=== PATIENT | male | born 1975 | race Hispanic/Latino ===

== ENCOUNTER 2017-10-05 14:03 | Emergency (ER) | payer BC ==
[~2017-10-05] VITALS: Ht 175.3 cm; Wt 99.8 kg
[2017-10-05 14:28] LABS: BASOPHILS % 0.2 % (0.0-1.0); EOSINOPHILS % 0.1 % (0.0-6.0); HEMATOCRIT 42.9 % (38.2-49.6); LYMPHOCYTES # (AUTO) 1.6 (1.0-3.2); LYMPHOCYTES % 11.6 % (18.0-39.1); MEAN CORPUSCULAR HEMOGLOBIN 29.8 pg (28-32); MEAN CORPUSCULAR VOLUME 85.1 fL (81-99); MONOCYTES # (AUTO) 0.8 (0.2-0.8); MONOCYTES % 5.6 % (4.4-11.3); NEUTROPHILS # (AUTO) 11.4 (2.1-6.9); NEUTROPHILS % 81.6 % (38.7-80.0); PLATELET COUNT 276 x10e3/uL (140-360); RED BLOOD COUNT 5.04 x10e6/uL (4.3-5.7)
[2017-10-05] MEDS ORDERED: NIFEDIPINE 10 MG CAP PO ONE (14:30)
[2017-10-05 14:42] LABS: ANION GAP 12.6 mmol/L (8-16); BLOOD UREA NITROGEN 10 mg/dL (7-26); BUN/CREATININE RATIO 11 (6-25); CALCIUM 9.6 mg/dL (8.4-10.2); CARBON DIOXIDE 26 mmol/L (22-29); CHLORIDE 103 mmol/L (98-107); CREATININE, SERUM 0.94 mg/dL (0.72-1.25); EST GLOMERULAR FILTRATION RATE > 60 ML/MIN (60-); GLUCOSE 141 mg/dL (74-118); POTASSIUM 3.6 mmol/L (3.5-5.1); SODIUM 138 mmol/L (136-145)
--- NOTE | 2017-10-05 15:27 | Diagnostic Imaging Report ---
PROCEDURE: Frontal and lateral views of the chest. COMPARISON: None. INDICATIONS: NECK PAIN FINDINGS: Lines/tubes: None. Lungs: The lungs are well inflated and clear. There is no evidence of pneumonia or pulmonary edema. Pleura: There is no pleural effusion or pneumothorax. Heart and mediastinum: The heart and the mediastinum are normal. Bones: No acute bony abnormality. IMPRESSION: 1. No acute cardiopulmonary abnormalities. Valdez Nicholas M.D. Dictated by: Valdez Nicholas M.D. on 10/05/2017 at 15:30 Electronically approved by: Valdez Nicholas M.D. on 10/05/2017 at 15:30
--- NOTE | 2017-10-05 15:40 | Diagnostic Imaging Report ---
PROCEDURE:C-SPINE COMPLETE COMPARISON:None. INDICATIONS:NECK PAIN FINDINGS: Cervical spine is visualized on the lateral view from the skull base to C7-T1. Loss of the normal cervical lordosis, which may be due to muscle spasm or positioning. No acute, displaced fracture. No significant spondylolisthesis. Intervertebral disc spaces and vertebral body heights are preserved. Bilateral oblique views show patent neural foramina. Subtle fractures, ligamentous and soft tissue injury cannot be excluded on the basis of this examination. Incidental note is made of an impacted left lower molar. CONCLUSION: Loss of the normal cervical lordosis, which may be due to muscle spasm or positioning. Otherwise, essentially unremarkable cervical films. Valdez Nicholas M.D. Dictated by: Valdez Nicholas M.D. on 10/05/2017 at 15:43 Electronically approved by: Valdez Nicholas M.D. on 10/05/2017 at 15:43
[2017-10-05] MEDS ORDERED: LISINOPRIL 10 MG TAB PO ONE (15:45)
== END 2017-10-05 16:46 | disposition home or self-care (01) ==
LOC: ER 14:03
DX: S16.1XXA Strain of muscle, fascia and tendon at neck level, initial encounter (principal); I10 Essential (primary) hypertension; F17.210 Nicotine dependence, cigarettes, uncomplicated; X58.XXXA Exposure to other specified factors, initial encounter
CPT/HCPCS: 36415; 71046; 72050; 80048; 85025; 93005; 99284

== ENCOUNTER 2017-11-02 12:51 | Emergency (ER) | payer BC ==
[~2017-11-02] VITALS: Ht 175.3 cm; Wt 99.8 kg
[2017-11-02] MEDS ORDERED: KETOROLAC TROMETHAMINE 60 MG/2 ML VIAL IM ONE (14:15)
[2017-11-02] MEDS ORDERED: CLONIDINE HCL 0.1 MG TAB PO ONE (14:15)
--- NOTE | 2017-11-02 15:20 | Diagnostic Imaging Report ---
Exam: Cervical spine CT without IV contrast History: Neck pain. Comparison studies: Cervical spine x-ray 10/05/2017 Technique: Axial images were obtained through the cervical region. Coronal and sagittal images reconstructed from the axial data. Intravenous contrast: None Findings: Atlantoaxial articulation: Intact Alignment: Strain cervical curvature may be positional. No subluxations. Cervicomedullary junction: No abnormalities. Patent foramen magnum. Soft tissues: There is a 10 mm nodules/likely lymph node in the right suboccipital soft tissues in the area of concern as noted by skin marker which was placed prior to the exam. No other gross soft tissue abnormalities. Vertebrae: No fractures, neoplasm or infection. Degenerative changes: Mildly degenerated disks from C4 to C7 with small disc osteophyte complexes which indent the thecal sac but do not result in significant canal stenosis. Patent foramina. IMPRESSION: 1. Nonspecific 10 mm right suboccipital nodule, likely lymph node, in the area of concern. 2. Mild degenerative changes without significant canal or foraminal stenosis. Cannot adequately evaluate ligament, spinal cord or vascular abnormalities on the basis of this exam. Signed by: Dr. Leonel Holder M.D. on 11/02/2017 3:17 PM
== END 2017-11-02 18:35 | disposition home or self-care (01) ==
LOC: ER 12:51
DX: M54.2 Cervicalgia (principal); S16.1XXA Strain of muscle, fascia and tendon at neck level, initial encounter; I10 Essential (primary) hypertension
CPT/HCPCS: 72125; 99284; J1885

== ENCOUNTER → 2017-11-08 | Outpatient (CLI) | payer BC ==
[~2017-11-08] MED LIST: GADOBENATE DIMEGLUMINE 1 ML IV ONE; SODIUM CHLORIDE 0.9% 50ML 50 ML ONE
[2017-11-08 09:21] LABS: BLOOD UREA NITROGEN 9 mg/dL (7-26); BUN/CREATININE RATIO 9 (6-25); CREATININE, SERUM 0.95 mg/dL (0.72-1.25); EST GLOMERULAR FILTRATION RATE > 60 ML/MIN (60-)
--- NOTE | 2017-11-08 09:44 | Diagnostic Imaging Report ---
PROCEDURE: X-RAY CHEST, TWO VIEWS COMPARISON: Patients [facility], DX, CHEST 2 VIEWS, 10/05/2017, 14:16. INDICATIONS: RIGHT SIDE NECK LESION, SMOKER FINDINGS: LUNGS: No consolidations or edema. PLEURA: No effusions or pneumothorax. HEART \T\ MEDIASTINUM: The heart is within normal size-limits. BONES \T\ SOFT TISSUES: No acute findings. CONCLUSION: No acute thoracic abnormality. Jeremy Negron D.O. Dictated by: Jeremy Negron D.O. on 11/08/2017 at 9:48 Electronically approved by: Jeremy Negron D.O. on 11/08/2017 at 9:48
--- NOTE | 2017-11-08 12:21 | Diagnostic Imaging Report ---
PROCEDURE:C-SPINE COMPLETE COMPARISON:10/05/17 INDICATIONS:RIGHT SIDED NECK LESION FINDINGS: The lateral view is visualized from the skull base to C6. Limited for C7-T1 on lateral view. The vertebral bodies are well-aligned. Again seen mild loss of cervical spine lordosis. There are no fractures, lytic or blastic lesions. The disc-space heights are well-maintained. The C1/C2-odontoid interval is normal. The pre-vertebral soft tissues are normal. CONCLUSION: Unremarkable cervical spine radiograph. Dictated by: Rudy Page M.D. on 11/08/2017 at 12:25 Electronically approved by: Rudy Page M.D. on 11/08/2017 at 12:25
--- NOTE | 2017-11-08 21:17 | Diagnostic Imaging Report ---
Examination: Neck MRI without and with Contrast History: Right-sided neck lesion. Comparison studies: CT cervical spine performed November 02, 2017. Technique: Pre-contrast: Axial T1 Flair, T2 fat sat, proton density, coronal T2 Post contrast: Axial and Coronal T1 fat sat Intravenous contrast: 20 cc of MultiHance Findings: Soft tissues: No abnormalities. Aerodigestive tract: No abnormality. Lymph nodes: A homogeneous 7.5 mm node is seen deep to the marker placed in the right posterior neck. No radiographically significant adenopathy. Vessels: Arteries and veins are patent. Thyroid gland: Normal in size and homogeneous. Submandibular glands: Normal in size and homogeneous. Parotid glands: Normal in size and homogeneous. Orbits: No abnormalities. Paranasal sinuses: Clear. Temporal bones: No abnormalities. Skull base and facial bones: Intact. Cervical spine: Asymmetric to the left disc bulge at C5-C6 without canal or foraminal stenosis. Remaining cervical levels demonstrate no disc bulge or herniation or foraminal or canal stenosis. IMPRESSION: 1. A 7.5 mm homogeneous right posterior neck node, which is reactive and requires no further workup. 2. No radiographically significant adenopathy. Signed by: Dr. Selin Lawson M.D. on 11/08/2017 9:14 PM
== END ==
LOC: MRI 08:21
PROVIDERS: ATTEND Internal Medicine
DX: M54.2 Cervicalgia (principal); R22.1 Localized swelling, mass and lump, neck; F17.210 Nicotine dependence, cigarettes, uncomplicated
CPT/HCPCS: 36415; 70543; 71046; 72050; 82565; 84520

== ENCOUNTER 2018-07-16 21:13 | Emergency (ER) | payer BC ==
[~2018-07-16] VITALS: Ht 175.3 cm; Wt 99.8 kg
[2018-07-16] MEDS ORDERED: DIATRIZOATE MEGL/DIATRIZOA SOD 30 ML BTL PO ONE (22:16)
[2018-07-16 22:31] LABS: ANION GAP 12.8 mmol/L (8-16); BLOOD UREA NITROGEN 14 mg/dL (7-26); BUN/CREATININE RATIO 12 (6-25); CARBON DIOXIDE 25 mmol/L (22-29); CHLORIDE 104 mmol/L (98-107); CREATININE, SERUM 1.18 mg/dL (0.72-1.25); EST GLOMERULAR FILTRATION RATE > 60 ML/MIN (60-); GLUCOSE 90 mg/dL (74-118); POTASSIUM 3.8 mmol/L (3.5-5.1); SODIUM 138 mmol/L (136-145)
[2018-07-16 23:08] LABS: BASOPHILS # (AUTO) 0.1 (0.0-0.1); BASOPHILS % 0.5 % (0.0-1.0); EOSINOPHILS # (AUTO) 0.3 (0.0-0.4); EOSINOPHILS % 2.7 % (0.0-6.0); HEMATOCRIT 41.6 % (38.2-49.6); LYMPHOCYTES # (AUTO) 2.2 (1.0-3.2); LYMPHOCYTES % 17.4 % (18.0-39.1); MEAN CORPUSCULAR HEMOGLOBIN 29.6 pg (28-32); MEAN CORPUSCULAR HGB CONC 33.7 g/dL (31-35); MEAN CORPUSCULAR VOLUME 87.9 fL (81-99); MONOCYTES # (AUTO) 1.2 (0.2-0.8); MONOCYTES % 9.3 % (4.4-11.3); NEUTROPHILS # (AUTO) 8.8 (2.1-6.9); NEUTROPHILS % 69.6 % (38.7-80.0); PLATELET COUNT 280 x10e3/uL (140-360); RED BLOOD COUNT 4.73 x10e6/uL (4.3-5.7); RED CELL DISTRIBUTION WIDTH 12.4 % (11.7-14.4)
[2018-07-16] MEDS ORDERED: IOPAMIDOL 370 MG/ML 200 ML INFUS..BTL INJ ONE (23:10)
[2018-07-16] MEDS ORDERED: SODIUM CHLORIDE 0.9% 50ML 50 ML ONE (23:10)
--- NOTE | 2018-07-16 23:47 | Diagnostic Imaging Report ---
EXAMINATION: CT of the abdomen and pelvis with contrast. TECHNIQUE: Spiral CT images of the abdomen and pelvis were performed from the lung bases to the lesser trochanters after the intravenous administration of 100 cc of Isovue 370 and the oral administration of dilute Gastrografin. Coronal and sagittal reformatted images were obtained. COMPARISON: None. CLINICAL HISTORY:Right groin pain, secondary to hernia according to patient DISCUSSION: ABDOMEN/PELVIS: LOWER THORAX:Unremarkable. HEPATOBILIARY: No focal hepatic lesions. No intra or extrahepatic biliary ductal dilation. GALLBLADDER: No radio-opaque stones or sludge. No wall thickening. SPLEEN: No splenomegaly. PANCREAS: No focal masses or ductal dilatation. ADRENALS: No adrenal nodules. KIDNEYS/URETERS: No hydronephrosis, stones, or solid mass lesions. PELVIC ORGANS/BLADDER: Bladder and prostate are unremarkable. PERITONEUM/RETROPERITONEUM: No free air or fluid. LYMPH NODES: No intra-abdominal, retroperitoneal, pelvic or inguinal lymphadenopathy. VESSELS: The celiac trunk,superior and inferior mesenteric and bilateral renal arteries are patent The portal, superior mesenteric and splenic veins are patent. Minimal atherosclerotic calcification of the distal abdominal aorta GI TRACT: No bowel dilation or evidence of obstruction. No pericolonic inflammatory changes. Metallic clips in the region of the cecum likely from prior appendectomy. BONES AND SOFT TISSUE: No aggressive lytic lesions. No inguinal hernia. Tiny fat-containing umbilical hernia. IMPRESSION: 1. No inguinal hernia is identified. Essentially unremarkable CT abdomen and pelvis. Signed by: Dr. Valdez Nicholas M.D. on 07/16/2018 11:43 PM
== END 2018-07-17 00:26 | disposition home or self-care (01) ==
LOC: ER 21:13
DX: R10.31 Right lower quadrant pain (principal); K40.90 Unilateral inguinal hernia, without obstruction or gangrene, not specified as recurrent; I10 Essential (primary) hypertension
CPT/HCPCS: 36415; 74177; 80048; 85025; 99283; Q9967

== ENCOUNTER 2024-02-07 20:08 | Emergency (ER) | payer SELFPAY ==
[~2024-02-07] VITALS: Ht 175.3 cm; Wt 102.1 kg
[~2024-02-07 20:08] MED LIST changes: +AZITHROMYCIN250 MG PO; -GADOBENATE DIMEGLUMINE 1 ML IV ONE; -SODIUM CHLORIDE 0.9% 50ML 50 ML ONE
[2024-02-07 20:45] VITALS: TEMP 98.5
[2024-02-07] MEDS: KETOROLAC TROMETHAMINE 30 MG/ML VIAL IV STA (21:06)
[2024-02-07] MEDS: SODIUM CHLORIDE 0.9% 1000ML 1,000 ML IV STA (21:07)
[2024-02-07 21:10] LABS: BASOPHILS # (AUTO) 0.1 (0.0-0.1); BASOPHILS % 0.9 % (0.0-1.0); EOSINOPHILS # (AUTO) 0.5 (0.0-0.4); EOSINOPHILS % 6.1 % (0.0-6.0); HEMOGLOBIN 10.6 g/dL (14.0-18.0); LYMPHOCYTES # (AUTO) 1.2 (1.0-3.2); LYMPHOCYTES % 14.5 % (18.0-39.1); MEAN CORPUSCULAR HEMOGLOBIN 22.6 pg (28-32); MEAN CORPUSCULAR HGB CONC 30.3 g/dL (31-35); MEAN CORPUSCULAR VOLUME 74.8 fL (81-99); MONOCYTES # (AUTO) 0.8 (0.2-0.8); MONOCYTES % 9.7 % (4.4-11.3); NEUTROPHILS # (AUTO) 5.6 (2.1-6.9); NEUTROPHILS % 68.4 % (38.7-80.0); PLATELET COUNT 398 x10e3/uL (140-360); RED BLOOD COUNT 4.68 x10e6/uL (4.3-5.7); RED CELL DISTRIBUTION WIDTH 17.7 % (11.7-14.4); WHITE BLOOD COUNT 8.22 x10e3/uL (4.8-10.8)
[2024-02-07 21:29] LABS: ALBUMIN 3.5 g/dL (3.5-5.0); ALBUMIN/GLOBULIN RATIO 1.3 (0.8-2.0); BILIRUBIN,TOTAL 0.2 mg/dL (0.2-1.2); CALCIUM 8.7 mg/dL (8.4-10.2); CREATININE, SERUM 0.99 mg/dL (0.72-1.25); TOTAL PROTEIN 6.2 g/dL (6.5-8.1)
[2024-02-07 21:35] LABS: TROPONIN I 0.004 ng/mL (0-0.300)
[2024-02-07] MEDS ORDERED: IOPAMIDOL 370 MG/ML 100 ML INFUS..BTL INJ ONE (22:00)
[2024-02-07 22:52] LABS: AMPHETAMINES SCREEN,URINE NEGATIVE (NEGATIVE); BENZODIAZEPINES SCREEN,URINE NEGATIVE (NEGATIVE); CANNABINOIDS SCREEN,URINE NEGATIVE (NEGATIVE); METHADONE SCREEN, URINE NEGATIVE (NEGATIVE); OPIATES SCREEN,URINE NEGATIVE (NEGATIVE); PHENCYCLIDINE SCREEN,URINE NEGATIVE (NEGATIVE)
[2024-02-07 23:41] VITALS: PULSE 81; RESP 17
[2024-02-08 00:37] VITALS: BP 133/71; PULSE 79; RESP 18; TEMP 98; O2SAT 98
== END 2024-02-08 00:36 | disposition home or self-care (01) ==
LOC: ER 20:12
DX: R06.02 Shortness of breath (principal); R07.89 Other chest pain; S13.4XXA Sprain of ligaments of cervical spine, initial encounter; I10 Essential (primary) hypertension; Z11.52 Encounter for screening for COVID-19
CPT/HCPCS: 36415; 71260; 72125; 80053; 80307; 82550; 83690; 83880; 84484; 85025; 93005; 99284; J1885; J7030; Q9967; U0002